=== PATIENT | female | born 1935 | race African-American/Black ===

== ENCOUNTER 2021-06-15 17:29 | Inpatient (IN) | payer OTHER ==
[~2021-06-15] VITALS: Ht 167.6 cm; Wt 70.3 kg
[~2021-06-15 17:29] MED LIST: ETOMIDATE 2MG/ML 10ML VIAL IV ONE; SUCCINYLCHOLINE CHLORIDE 200MG/10ML IV ONE
[2021-06-15] MEDS ORDERED: SUCCINYLCHOLINE CHLORIDE 200MG/10ML IV ONE (17:45)
[2021-06-15] MEDS ORDERED: FENTANYL CITRATE 2,500 MCG in SODIUM CHLORIDE 0.9% 200 ML IV PRN (17:45)
[2021-06-15] MEDS ORDERED: ETOMIDATE 2MG/ML 10ML VIAL IV ONE (17:45)
[2021-06-15] MEDS ORDERED: MIDAZOLAM 100MG/100ML PREMIX IV PRN (17:45)
[2021-06-15] MEDS ORDERED: LEVETIRACETAM 500MG PREMIX 100 ML IV ONE (17:45)
[2021-06-15] MEDS ORDERED: SUCCINYLCHOLINE CHLORIDE 200MG/10ML IV NR (18:00)
[2021-06-15] MEDS ORDERED: ETOMIDATE 2MG/ML 10ML VIAL IV NR (18:00)
[2021-06-15 18:14] LABS: BG BASE EXCESS -6.3 mmol/L (-2.0-2.0); BG CARBOXYHEMOGLOBIN 0.3 % (0.5-1.5); BG DEOXYHEMOGLOBIN 1.3 % (0.0-5.0); BG HCO3 ACT 18.4 mmol/L (22.0-26.0); BG METHEMOGLOBIN 0.1 % (0.0-1.5); BG OXYGEN SATURATION 98.7 % (92.0-98.5); BG OXYHEMOGLOBIN 98.3 % (94.0-97.0); BG PCO2 33.7 mmHg (35.0-45.0); BG PH 7.355 (7.350-7.450); BG PO2 140.8 mmHg (75.0-100.0); BG SAMPLE SITE RIGHT BRACHIAL; BG TOTAL HEMOGLOBIN 11.7 g/dL (12.0-18.0); BG VENT MODE VENT - AC
[2021-06-15 18:15] LABS: HEMATOCRIT. 36.7 % (36.0-48.0); HEMOGLOBIN. 11.9 g/dL (12.0-16.0); MEAN CORPUSCULAR HEMOGLOBIN 32.6 pg (28.0-32.0); MEAN PLATELET VOLUME 7.8 fl (7.4-10.4); PLATELET 155 x1000/uL (130-400); RED BLOOD CELL COUNT 3.63 mill/uL (4.2-5.4); RED CELL DISTRIBUTION WIDTH 21.9 % (11.6-14.6)
[2021-06-15] MEDS ORDERED: IOHEXOL-350 100 ML BOTTLE ONE (18:16)
[2021-06-15 18:21] LABS: CHLORIDE 109 mEq/L (98-107)
[2021-06-15 18:24] LABS: ETHANOL BLOOD < 10 mg/dL
[2021-06-15] MEDS ORDERED: DOXYCYCLINE 100MG in DEXTROSE 5% WATER 100ML IV NR (19:00)
[2021-06-15] MEDS ORDERED: CEFTRIAXONE 2 G PREMIX 50 ML IV ONE (19:00)
[2021-06-15] MEDS ORDERED: DOXYCYCLINE HYCLATE 100 MG/VIAL IV ONE (19:00)
[2021-06-15 19:22] LABS: CLARITY URINE CLEAR (CLEAR); COLOR URINE YELLOW (YELLOW); KETONES URINE NEGATIVE (NEGATIVE); LEUKOCYTE ESTERASE URINE NEGATIVE (NEGATIVE); NITRITE URINE NEGATIVE (NEGATIVE); OCCULT BLOOD URINE 2+ (NEGATIVE); PH URINE 6.5 (4.5-8.0); PROTEIN URINE 2+ (NEGATIVE); SPECIFIC GRAVITY URINE 1.022 (1.005-1.030); UROBILINOGEN URINE 0.2 E.U./dL (0.2-1.0)
[2021-06-15 19:46] LABS: *BARBITURATES SCREEN URINE NEGATIVE (NEGATIVE); CANNABINOID URINE SCREEN NEGATIVE (NEGATIVE)
[2021-06-15 19:47] LABS: *AMPHETAMINES SCREEN URINE NEGATIVE (NEGATIVE); *BENZODIAZEPINES SCREEN URINE PRESUMTIVE POSITIVE (NEGATIVE); *COCAINE SCREEN URINE NEGATIVE (NEGATIVE); METHADONE URINE SCREEN NEGATIVE (NEGATIVE); OPIATES URINE SCREEN NEGATIVE (NEGATIVE); PHENCYCLIDINE URINE SCREEN NEGATIVE (NEGATIVE)
[2021-06-15 22:02] LABS: NUCLEATED RED BLOOD CELLS 2 /100 WBC; PLATELET ESTIMATE NORMAL
[2021-06-15 23:00] VITALS: BP_SYST 171; BP_SYST 176; BP_DIAS 83; BP_DIAS 86
[2021-06-15 23:15] VITALS: BP 176/86
[2021-06-15 23:30] VITALS: BP 135/86
[2021-06-15 23:45] VITALS: BP 78/48
[2021-06-15] MEDS ORDERED: PROPOFOL 10MG/ML 100ML 100 ML IV PRN (23:45)
[2021-06-15] MEDS ORDERED: FENTANYL CITRATE/PF 2,500 MCG in SODIUM CHLORIDE 0.9% 200 ML IV PRN (23:45)
[2021-06-15] MEDS ORDERED: MIDAZOLAM 100MG/100ML PMX 100 ML IV PRN (23:45)
[2021-06-15] MEDS ORDERED: AMLODIPINE 10MG TABLET PO SCH (23:59)
[2021-06-15] MEDS: AMLODIPINE 10MG TABLET NG SCH (23:59)
[2021-06-15] MEDS: LOSARTAN POTASSIUM 50 MG TABLET NG SCH (23:59)
[2021-06-15] MEDS ORDERED: LOSARTAN POTASSIUM 50 MG TABLET PO SCH (23:59)
[2021-06-16] VITALS (66 sets, daily range): BP systolic 73–198; BP diastolic 41–103
[2021-06-16] MEDS ORDERED: NOREPINEPHRINE 8MG/250ML PMX 250 ML IV PRN (00:15)
[2021-06-16] MEDS ORDERED: DEXTROSE 50% WATER 50ML SYRINGE IV PRN (00:30)
[2021-06-16] MEDS ORDERED: ONDANSETRON HCL 4MG/2ML INJ IV PRN (00:30)
[2021-06-16] MEDS ORDERED: ACETAMINOPHEN 325MG TABLET PO PRN (00:30)
[2021-06-16] MEDS ORDERED: LEVETIRACETAM 500 MG in SODIUM CHLORIDE 0.9% 100 ML IV SCH (00:30)
[2021-06-16] MEDS ORDERED: NOREPINEPHRINE 8 MG in DEXTROSE 5% WATER 250 ML IV PRN (00:30)
[2021-06-16] MEDS: SODIUM CHLORIDE 0.9% 1,000 ML IV SCH ×3 (00:53→20:44)
[2021-06-16] MEDS ORDERED: RIVA20TA MT (01:51)
[2021-06-16] MEDS ORDERED: LOSA50TA3 MT (01:51)
[2021-06-16] MEDS ORDERED: ATOR10TA PO (01:54)
[2021-06-16] MEDS ORDERED: AMLO10TA4 MT (01:54)
[2021-06-16] MEDS ORDERED: METF-414 MT (01:54)
[2021-06-16] MEDS ORDERED: COM10 MT (01:54)
[2021-06-16] MEDS ORDERED: D3 (02:08)
[2021-06-16] MEDS ORDERED: FERR160T11 MT (02:08)
[2021-06-16] MEDS: MIDAZOLAM HCL 100 MG in SODIUM CHLORIDE 0.9% 100 ML IV PRN (02:40)
[2021-06-16] MEDS ORDERED: VANCOMYCIN 1 G PREMIX 200 ML IV NR (03:00)
[2021-06-16] MEDS ORDERED: *PATIENT'S OWN MEDICATION STORAGE XX SCH (04:15)
[2021-06-16] MEDS: LEVETIRACETAM 500MG PREMIX 100 ML IV SCH ×2 (05:35→20:43)
[2021-06-16] MEDS: PIPERACILLIN/TAZOBACTAM 3.375 G in DEXTROSE 5% WATER 50 ML IV SCH ×2 (05:35→14:33)
[2021-06-16] MEDS: INSULIN LISPRO 100 UNITS/ML SUBCUT SCH ×3 (05:43→17:56)
[2021-06-16] MEDS: BLOOD SUGAR DIAGNOSTIC STRIP TEST SCH ×3 (05:43→17:55)
[2021-06-16] MEDS: PANTOPRAZOLE SODIUM 40 MG/VIAL IV SCH (08:56)
[2021-06-16] MEDS: ASPIRIN 81MG TABLET PO SCH (08:56)
[2021-06-16] MEDS: AMLODIPINE 10MG TABLET NG SCH (08:57)
[2021-06-16] MEDS: LOSARTAN POTASSIUM 50 MG TABLET NG SCH ×2 (08:57→18:02)
[2021-06-16 09:32] LABS: BG BASE EXCESS -0.8 mmol/L (-2.0-2.0); BG CARBOXYHEMOGLOBIN 0.3 % (0.5-1.5); BG DEOXYHEMOGLOBIN 0.2 % (0.0-5.0); BG FRACTION INSPIRED OXYGEN 100; BG HCO3 ACT 19.6 mmol/L (22.0-26.0); BG METHEMOGLOBIN 0.3 % (0.0-1.5); BG OXYGEN SATURATION 99.8 % (92.0-98.5); BG OXYHEMOGLOBIN 99.2 % (94.0-97.0); BG PCO2 21.5 mmHg (35.0-45.0); BG PH 7.577 (7.350-7.450); BG PO2 432.1 mmHg (75.0-100.0); BG TOTAL HEMOGLOBIN 11.3 g/dL (12.0-18.0); BG VENT MODE VENT - AC
[2021-06-16] MEDS ORDERED: IPRATROPIUM/ALBUTEROL 0.5-3(2.5)MG/3ML NEB HHN PRN (11:30)
[2021-06-16] MEDS: IPRATROPIUM/ALBUTEROL 0.5-3(2.5)MG/3ML NEB HHN SCH ×2 (11:48→21:21)
[2021-06-16] MEDS: ENOXAPARIN 30MG/0.3ML SYR SUBCUT SCH (12:14)
[2021-06-16] MEDS: CLONIDINE 0.1MG TABLET NG PRN (16:30)
[2021-06-16] MEDS ORDERED: DIPHENHYDRAMINE 50MG/ML VIAL IM PRN (18:15)
[2021-06-16] MEDS: METHYLPREDNISOLONE SOD SUCC 40 MG/ML VIAL IV SCH (18:52)
[2021-06-16] MEDS ORDERED: DIPHENHYDRAMINE 50MG CAPSULE PO PRN (20:00)
[2021-06-16] MEDS: ATORVASTATIN CALCIUM 10MG TABLET NG SCH (20:43)
[2021-06-16] MEDS ORDERED: FAMOTIDINE 20MG/2ML VIAL IV SCH (21:00)
[2021-06-17] VITALS (74 sets, daily range): BP systolic 82–199; BP diastolic 25–105
[2021-06-17] MEDS ORDERED: DOPAMINE 400MG/250ML PREMIX 250 ML IV PRN
[2021-06-17] MEDS: PIPERACILLIN/TAZOBACTAM 3.375 G in DEXTROSE 5% WATER 50 ML IV SCH ×4 (00:01→22:06)
[2021-06-17] MEDS ORDERED: DOPAMINE 400MG/250ML PREMIX 250 ML IV ONE (00:05)
[2021-06-17 00:33] LABS: CHLORIDE 111 mEq/L (98-107)
[2021-06-17] MEDS: BLOOD SUGAR DIAGNOSTIC STRIP TEST SCH ×4 (00:38→18:00)
[2021-06-17] MEDS: INSULIN LISPRO 100 UNITS/ML SUBCUT SCH ×4 (00:39→18:29)
[2021-06-17] MEDS: MIDAZOLAM HCL 100 MG in SODIUM CHLORIDE 0.9% 100 ML IV PRN (03:45)
[2021-06-17] MEDS ORDERED: POTASSIUM CHLORIDE INJ 40 MEQ in DEXT 5% WATER 250 ML IV ONE (03:45)
[2021-06-17] MEDS: METHYLPREDNISOLONE SOD SUCC 40 MG/ML VIAL IV SCH ×3 (04:20→18:30)
[2021-06-17] MEDS: IPRATROPIUM/ALBUTEROL 0.5-3(2.5)MG/3ML NEB HHN SCH ×4 (04:57→20:25)
[2021-06-17] MEDS ORDERED: KCL 20MEQ/100ML PREMIX 100 ML IV NR ×2 (05:00→07:00)
[2021-06-17 05:44] LABS: BASOPHILS % 0.2 % (0.0-2.0); HEMATOCRIT. 35.1 % (36.0-48.0); HEMOGLOBIN. 11.3 g/dL (12.0-16.0); LYMPHOCYTES % 13.1 % (20.0-50.0); MEAN CORPUSCULAR HEMOGLOBIN 32.2 pg (28.0-32.0); MEAN CORPUSCULAR VOLUME 99.8 fL (81.0-99.0); MEAN PLATELET VOLUME 7.9 fl (7.4-10.4); MONOCYTES % 4.1 % (2.0-8.0); NEUTROPHILS % 82.6 % (40.0-76.0); PLATELET 143 x1000/uL (130-400); RED BLOOD CELL COUNT 3.51 mill/uL (4.2-5.4); RED CELL DISTRIBUTION WIDTH 21.9 % (11.6-14.6)
[2021-06-17 05:51] LABS: CHLORIDE 110 mEq/L (98-107)
[2021-06-17] MEDS: SODIUM CHLORIDE 0.9% 1,000 ML IV SCH ×2 (06:01→16:27)
[2021-06-17] MEDS ORDERED: VANCOMYCIN 1 G PREMIX 200 ML IV SCH (08:00)
[2021-06-17] MEDS: LOSARTAN POTASSIUM 50 MG TABLET NG SCH ×2 (09:00→16:27)
[2021-06-17] MEDS: AMLODIPINE 10MG TABLET NG SCH ×2 (09:00→16:28)
[2021-06-17] MEDS: LEVETIRACETAM 500MG PREMIX 100 ML IV SCH ×2 (09:10→20:59)
[2021-06-17] MEDS: PANTOPRAZOLE SODIUM 40 MG/VIAL IV SCH (09:11)
[2021-06-17] MEDS: ASPIRIN 81MG TABLET PO SCH (09:11)
[2021-06-17 09:56] LABS: BG BASE EXCESS -7.9 mmol/L (-2.0-2.0); BG CARBOXYHEMOGLOBIN 0.2 % (0.5-1.5); BG DEOXYHEMOGLOBIN 2.1 % (0.0-5.0); BG FRACTION INSPIRED OXYGEN 30; BG HCO3 ACT 16.9 mmol/L (22.0-26.0); BG METHEMOGLOBIN 0.7 % (0.0-1.5); BG OXYGEN SATURATION 97.9 % (92.0-98.5); BG PCO2 32.3 mmHg (35.0-45.0); BG PH 7.337 (7.350-7.450); BG PO2 129.9 mmHg (75.0-100.0); BG SAMPLE SITE RIGHT RADIAL; BG TOTAL HEMOGLOBIN 12.1 g/dL (12.0-18.0); BG VENT MODE VENT - AC
[2021-06-17] MEDS: ENOXAPARIN 30MG/0.3ML SYR SUBCUT SCH (12:22)
[2021-06-17] MEDS: ATORVASTATIN CALCIUM 10MG TABLET NG SCH (20:59)
[2021-06-18] VITALS (49 sets, daily range): BP systolic 115–179; BP diastolic 51–122
[2021-06-18] MEDS: IPRATROPIUM/ALBUTEROL 0.5-3(2.5)MG/3ML NEB HHN SCH ×4 (00:18→20:40)
[2021-06-18] MEDS: BLOOD SUGAR DIAGNOSTIC STRIP TEST SCH ×4 (00:29→18:15)
[2021-06-18] MEDS: INSULIN LISPRO 100 UNITS/ML SUBCUT SCH ×4 (00:31→18:19)
[2021-06-18] MEDS: METHYLPREDNISOLONE SOD SUCC 40 MG/ML VIAL IV SCH ×3 (02:18→18:19)
[2021-06-18] MEDS: SODIUM CHLORIDE 0.9% 1,000 ML IV SCH ×3 (02:23→22:43)
[2021-06-18] MEDS: PIPERACILLIN/TAZOBACTAM 3.375 G in DEXTROSE 5% WATER 50 ML IV SCH ×3 (05:40→22:43)
[2021-06-18 06:19] LABS: HEMATOCRIT. 34.3 % (36.0-48.0); HEMOGLOBIN. 11.3 g/dL (12.0-16.0); MEAN CORPUSCULAR HEMOGLOBIN 33.8 pg (28.0-32.0); MEAN CORPUSCULAR VOLUME 102.5 fL (81.0-99.0); MEAN PLATELET VOLUME 7.9 fl (7.4-10.4); PLATELET 124 x1000/uL (130-400); RED BLOOD CELL COUNT 3.35 mill/uL (4.2-5.4); RED CELL DISTRIBUTION WIDTH 21.8 % (11.6-14.6)
[2021-06-18 06:29] LABS: CHLORIDE 114 mEq/L (98-107)
[2021-06-18] MEDS: LOSARTAN POTASSIUM 50 MG TABLET NG SCH ×2 (08:40→18:19)
[2021-06-18] MEDS: PANTOPRAZOLE SODIUM 40 MG/VIAL IV SCH (08:40)
[2021-06-18] MEDS: ASPIRIN 81MG TABLET PO SCH (08:41)
[2021-06-18] MEDS: AMLODIPINE 10MG TABLET NG SCH (08:41)
[2021-06-18] MEDS: LEVETIRACETAM 500MG PREMIX 100 ML IV SCH ×2 (08:42→20:23)
[2021-06-18 09:03] LABS: BG BASE EXCESS -6.9 mmol/L (-2.0-2.0); BG CARBOXYHEMOGLOBIN 0.1 % (0.5-1.5); BG FRACTION INSPIRED OXYGEN 30; BG HCO3 ACT 17.8 mmol/L (22.0-26.0); BG METHEMOGLOBIN 0.1 % (0.0-1.5); BG OXYGEN SATURATION 98.4 % (92.0-98.5); BG OXYHEMOGLOBIN 98.2 % (94.0-97.0); BG PO2 140.8 mmHg (75.0-100.0); BG SAMPLE SITE RIGHT RADIAL; BG TOTAL HEMOGLOBIN 10.8 g/dL (12.0-18.0); BG VENT MODE VENT - AC
[2021-06-18 09:04] LABS: BG DEOXYHEMOGLOBIN 1.6 % (0.0-5.0)
[2021-06-18 09:16] LABS: PLATELET ESTIMATE SLIGHTLY DECREASED
[2021-06-18] MEDS ORDERED: POTASSIUM CHLORIDE 20MEQ/PACKET PO NR (10:00)
[2021-06-18] MEDS: ENOXAPARIN 30MG/0.3ML SYR SUBCUT SCH (13:51)
[2021-06-18] MEDS: CLONIDINE 0.1MG TABLET NG PRN (15:35)
[2021-06-18 16:05] LABS: BG BASE EXCESS -4.9 mmol/L (-2.0-2.0); BG CARBOXYHEMOGLOBIN 0.3 % (0.5-1.5); BG DEOXYHEMOGLOBIN 1.6 % (0.0-5.0); BG FRACTION INSPIRED OXYGEN 30; BG HCO3 ACT 19.1 mmol/L (22.0-26.0); BG METHEMOGLOBIN 0.1 % (0.0-1.5); BG OXYGEN SATURATION 98.4 % (92.0-98.5); BG PCO2 32.2 mmHg (35.0-45.0); BG PH 7.392 (7.350-7.450); BG PO2 126.8 mmHg (75.0-100.0); BG SAMPLE SITE LEFT RADIAL; BG TOTAL HEMOGLOBIN 11.7 g/dL (12.0-18.0); BG VENT MODE VENT - CPAP
[2021-06-18] MEDS: ATORVASTATIN CALCIUM 10MG TABLET NG SCH (20:23)
[2021-06-18] MEDS: INSULIN GLARGINE UD 100 UNITS/ML SYR SUBCUT SCH (22:44)
[2021-06-19] VITALS (50 sets, daily range): BP systolic 114–165; BP diastolic 51–107
[2021-06-19] MEDS: INSULIN LISPRO 100 UNITS/ML SUBCUT SCH ×5 (00:08→23:26)
[2021-06-19] MEDS: BLOOD SUGAR DIAGNOSTIC STRIP TEST SCH ×5 (00:09→23:53)
[2021-06-19] MEDS: METHYLPREDNISOLONE SOD SUCC 40 MG/ML VIAL IV SCH ×3 (02:09→17:18)
[2021-06-19] MEDS: IPRATROPIUM/ALBUTEROL 0.5-3(2.5)MG/3ML NEB HHN SCH ×4 (02:26→20:18)
[2021-06-19 05:39] LABS: HEMATOCRIT. 34.5 % (36.0-48.0); HEMOGLOBIN. 11.5 g/dL (12.0-16.0); MEAN CORPUSCULAR HEMOGLOBIN 33.1 pg (28.0-32.0); MEAN CORPUSCULAR VOLUME 99.7 fL (81.0-99.0); PLATELET 126 x1000/uL (130-400); RED BLOOD CELL COUNT 3.46 mill/uL (4.2-5.4)
[2021-06-19 05:48] LABS: CHLORIDE 115 mEq/L (98-107)
[2021-06-19] MEDS: PIPERACILLIN/TAZOBACTAM 3.375 G in DEXTROSE 5% WATER 50 ML IV SCH ×3 (06:20→21:53)
[2021-06-19] MEDS: LEVETIRACETAM 500MG PREMIX 100 ML IV SCH ×2 (08:22→20:10)
[2021-06-19] MEDS: SODIUM CHLORIDE 0.9% 1,000 ML IV SCH ×2 (08:23→17:18)
[2021-06-19] MEDS: PANTOPRAZOLE SODIUM 40 MG/VIAL IV SCH (08:23)
[2021-06-19] MEDS: LOSARTAN POTASSIUM 50 MG TABLET NG SCH ×2 (08:24→16:52)
[2021-06-19] MEDS: AMLODIPINE 10MG TABLET NG SCH (08:24)
[2021-06-19] MEDS: ASPIRIN 81MG TABLET PO SCH (08:24)
[2021-06-19 11:09] LABS: PLATELET ESTIMATE SLIGHTLY DECREASED
[2021-06-19] MEDS: ENOXAPARIN 30MG/0.3ML SYR SUBCUT SCH (12:10)
[2021-06-19 14:36] LABS: PHOSPHORUS 1.6 mg/dL (2.5-4.9)
[2021-06-19] MEDS ORDERED: POTASSIUM PHOS,M-BASIC-D-BASIC 20 MMOL in DEXT 5% WATER 243.3333 ML IV NR (17:00)
[2021-06-19] MEDS: ATORVASTATIN CALCIUM 10MG TABLET NG SCH (20:10)
[2021-06-19] MEDS: INSULIN GLARGINE UD 100 UNITS/ML SYR SUBCUT SCH (21:54)
[2021-06-20] VITALS (51 sets, daily range): BP systolic 121–170; BP diastolic 34–105
[2021-06-20] MEDS: IPRATROPIUM/ALBUTEROL 0.5-3(2.5)MG/3ML NEB HHN SCH ×4 (02:08→20:51)
[2021-06-20] MEDS: METHYLPREDNISOLONE SOD SUCC 40 MG/ML VIAL IV SCH ×3 (02:53→17:31)
[2021-06-20] MEDS: SODIUM CHLORIDE 0.9% 1,000 ML IV SCH ×2 (05:11→15:00)
[2021-06-20] MEDS: PIPERACILLIN/TAZOBACTAM 3.375 G in DEXTROSE 5% WATER 50 ML IV SCH ×2 (05:11→14:28)
[2021-06-20] MEDS: INSULIN LISPRO 100 UNITS/ML SUBCUT SCH ×3 (05:12→17:32)
[2021-06-20] MEDS: BLOOD SUGAR DIAGNOSTIC STRIP TEST SCH ×4 (05:13→23:44)
[2021-06-20 06:09] LABS: HEMATOCRIT. 33.6 % (36.0-48.0); HEMOGLOBIN. 11.1 g/dL (12.0-16.0); MEAN CORPUSCULAR HEMOGLOBIN 32.4 pg (28.0-32.0); MEAN CORPUSCULAR VOLUME 97.6 fL (81.0-99.0); MEAN PLATELET VOLUME 7.9 fl (7.4-10.4); PLATELET 126 x1000/uL (130-400); RED BLOOD CELL COUNT 3.44 mill/uL (4.2-5.4); RED CELL DISTRIBUTION WIDTH 22.2 % (11.6-14.6)
[2021-06-20 06:11] LABS: CHLORIDE 113 mEq/L (98-107)
[2021-06-20 07:48] LABS: PLATELET ESTIMATE SLIGHTLY DECREASED
[2021-06-20] MEDS: LOSARTAN POTASSIUM 50 MG TABLET NG SCH ×2 (08:58→17:31)
[2021-06-20] MEDS: ASPIRIN 81MG TABLET PO SCH (08:58)
[2021-06-20] MEDS: LEVETIRACETAM 500MG PREMIX 100 ML IV SCH ×2 (08:58→21:54)
[2021-06-20] MEDS: PANTOPRAZOLE SODIUM 40 MG/VIAL IV SCH (08:59)
[2021-06-20] MEDS: AMLODIPINE 10MG TABLET NG SCH (08:59)
[2021-06-20] MEDS: HYDRALAZINE 20MG/ML VIAL IV PRN (11:07)
[2021-06-20] MEDS: ENOXAPARIN 30MG/0.3ML SYR SUBCUT SCH (11:58)
[2021-06-20] MEDS: ATORVASTATIN CALCIUM 10MG TABLET NG SCH (21:54)
[2021-06-20] MEDS: INSULIN GLARGINE UD 100 UNITS/ML SYR SUBCUT SCH (21:57)
[2021-06-21] VITALS (26 sets, daily range): BP systolic 138–169; BP diastolic 62–98
[2021-06-21] MEDS: INSULIN LISPRO 100 UNITS/ML SUBCUT SCH ×4 (00:03→17:00)
[2021-06-21] MEDS: IPRATROPIUM/ALBUTEROL 0.5-3(2.5)MG/3ML NEB HHN SCH (01:45)
[2021-06-21] MEDS: METHYLPREDNISOLONE SOD SUCC 40 MG/ML VIAL IV SCH ×3 (02:26→18:43)
[2021-06-21] MEDS: HYDRALAZINE 20MG/ML VIAL IV PRN (05:56)
[2021-06-21 06:19] LABS: BASOPHILS % 0.1 % (0.0-2.0); EOSINOPHILS % 0.1 % (0.0-5.0); HEMATOCRIT. 34.9 % (36.0-48.0); HEMOGLOBIN. 11.4 g/dL (12.0-16.0); LYMPHOCYTES % 11.3 % (20.0-50.0); MEAN PLATELET VOLUME 7.9 fl (7.4-10.4); MONOCYTES % 12.5 % (2.0-8.0); PLATELET 125 x1000/uL (130-400); RED BLOOD CELL COUNT 3.56 mill/uL (4.2-5.4); RED CELL DISTRIBUTION WIDTH 21.8 % (11.6-14.6)
[2021-06-21 06:24] LABS: CHLORIDE 111 mEq/L (98-107)
[2021-06-21] MEDS: BLOOD SUGAR DIAGNOSTIC STRIP TEST SCH ×3 (06:41→17:00)
[2021-06-21] MEDS: AMLODIPINE 10MG TABLET NG SCH (09:40)
[2021-06-21] MEDS: PANTOPRAZOLE SODIUM 40 MG/VIAL IV SCH (09:40)
[2021-06-21] MEDS: LEVETIRACETAM 500MG PREMIX 100 ML IV SCH (09:40)
[2021-06-21] MEDS: ASPIRIN 81MG TABLET PO SCH (09:40)
[2021-06-21] MEDS: LOSARTAN POTASSIUM 50 MG TABLET NG SCH ×2 (09:40→18:44)
[2021-06-21] MEDS: ENOXAPARIN 30MG/0.3ML SYR SUBCUT SCH (13:34)
[2021-06-21] MEDS: ATORVASTATIN CALCIUM 10MG TABLET NG SCH (21:00)
[2021-06-21] MEDS: LEVETIRACETAM 500MG TABLET PO SCH (21:00)
[2021-06-21] MEDS: INSULIN GLARGINE UD 100 UNITS/ML SYR SUBCUT SCH (22:00)
[2021-06-22] VITALS (13 sets, daily range): BP systolic 126–152; BP diastolic 61–83
[2021-06-22] MEDS: INSULIN LISPRO 100 UNITS/ML SUBCUT SCH ×5 (00:39→23:35)
[2021-06-22] MEDS: METHYLPREDNISOLONE SOD SUCC 40 MG/ML VIAL IV SCH ×3 (02:46→17:57)
[2021-06-22] MEDS: BLOOD SUGAR DIAGNOSTIC STRIP TEST SCH ×5 (06:30→23:34)
[2021-06-22] MEDS: ASPIRIN 81MG TABLET PO SCH (09:00)
[2021-06-22] MEDS: LEVETIRACETAM 500MG TABLET PO SCH ×2 (09:00→22:26)
[2021-06-22] MEDS: LOSARTAN POTASSIUM 50 MG TABLET NG SCH ×2 (09:00→17:57)
[2021-06-22] MEDS: AMLODIPINE 10MG TABLET NG SCH (09:00)
[2021-06-22] MEDS: PANTOPRAZOLE SODIUM 40 MG/VIAL IV SCH (09:01)
[2021-06-22 09:30] LABS: CHLORIDE 109 mEq/L (98-107)
[2021-06-22 09:31] LABS: BASOPHILS % 0.5 % (0.0-2.0); HEMATOCRIT. 36.9 % (36.0-48.0); HEMOGLOBIN. 12.3 g/dL (12.0-16.0); LYMPHOCYTES % 11.8 % (20.0-50.0); MEAN CORPUSCULAR HEMOGLOBIN 32.8 pg (28.0-32.0); MEAN CORPUSCULAR VOLUME 98.7 fL (81.0-99.0); MEAN PLATELET VOLUME 8.1 fl (7.4-10.4); MONOCYTES % 7.3 % (2.0-8.0); NEUTROPHILS % 80.4 % (40.0-76.0); PLATELET 126 x1000/uL (130-400); RED BLOOD CELL COUNT 3.74 mill/uL (4.2-5.4); RED CELL DISTRIBUTION WIDTH 22.2 % (11.6-14.6)
[2021-06-22 10:03] LABS: PHOSPHORUS 2.8 mg/dL (2.5-4.9)
[2021-06-22] MEDS: ENOXAPARIN 30MG/0.3ML SYR SUBCUT SCH (12:33)
[2021-06-22] MEDS ORDERED: CLONIDINE 0.1MG TABLET PO SCH (14:00)
[2021-06-22] MEDS: ATORVASTATIN CALCIUM 10MG TABLET NG SCH (22:26)
[2021-06-22] MEDS: INSULIN GLARGINE UD 100 UNITS/ML SYR SUBCUT SCH (22:28)
[2021-06-23] VITALS (12 sets, daily range): BP systolic 123–152; BP diastolic 61–98
[2021-06-23] MEDS: METHYLPREDNISOLONE SOD SUCC 40 MG/ML VIAL IV SCH ×3 (02:03→17:25)
[2021-06-23] MEDS: BLOOD SUGAR DIAGNOSTIC STRIP TEST SCH ×3 (05:50→16:56)
[2021-06-23] MEDS: INSULIN LISPRO 100 UNITS/ML SUBCUT SCH ×3 (05:51→17:25)
[2021-06-23] MEDS: PANTOPRAZOLE SODIUM 40 MG/VIAL IV SCH (10:46)
[2021-06-23] MEDS: ASPIRIN 81MG TABLET PO SCH (10:47)
[2021-06-23] MEDS: LOSARTAN POTASSIUM 50 MG TABLET NG SCH ×2 (10:47→17:25)
[2021-06-23] MEDS: AMLODIPINE 10MG TABLET NG SCH (10:47)
[2021-06-23] MEDS: LEVETIRACETAM 500MG TABLET PO SCH ×2 (10:47→21:30)
[2021-06-23] MEDS: ENOXAPARIN 30MG/0.3ML SYR SUBCUT SCH (12:44)
[2021-06-23] MEDS: ATORVASTATIN CALCIUM 10MG TABLET NG SCH (21:30)
[2021-06-23] MEDS: INSULIN GLARGINE UD 100 UNITS/ML SYR SUBCUT SCH (21:31)
[2021-06-24] VITALS (11 sets, daily range): BP systolic 117–173; BP diastolic 61–80
[2021-06-24] MEDS: BLOOD SUGAR DIAGNOSTIC STRIP TEST SCH ×4 (00:28→17:13)
[2021-06-24] MEDS: INSULIN LISPRO 100 UNITS/ML SUBCUT SCH ×4 (00:29→17:20)
[2021-06-24] MEDS: METHYLPREDNISOLONE SOD SUCC 40 MG/ML VIAL IV SCH ×3 (02:55→17:19)
[2021-06-24] MEDS: PANTOPRAZOLE SODIUM 40 MG/VIAL IV SCH (08:40)
[2021-06-24] MEDS: LOSARTAN POTASSIUM 50 MG TABLET NG SCH ×2 (08:40→17:19)
[2021-06-24] MEDS: ASPIRIN 81MG TABLET PO SCH (08:40)
[2021-06-24] MEDS: AMLODIPINE 10MG TABLET NG SCH (08:41)
[2021-06-24] MEDS: LEVETIRACETAM 500MG TABLET PO SCH ×2 (08:41→21:58)
[2021-06-24] MEDS: ENOXAPARIN 30MG/0.3ML SYR SUBCUT SCH (13:08)
[2021-06-24] MEDS: ATORVASTATIN CALCIUM 10MG TABLET NG SCH (21:58)
[2021-06-24] MEDS: INSULIN GLARGINE UD 100 UNITS/ML SYR SUBCUT SCH (21:59)
[2021-06-25] VITALS: BP 133/69
[2021-06-25] MEDS: BLOOD SUGAR DIAGNOSTIC STRIP TEST SCH ×4 (00:56→17:51)
[2021-06-25] MEDS: INSULIN LISPRO 100 UNITS/ML SUBCUT SCH ×4 (00:57→17:52)
[2021-06-25] MEDS: METHYLPREDNISOLONE SOD SUCC 40 MG/ML VIAL IV SCH ×3 (02:03→17:54)
[2021-06-25 04:00] VITALS: BP 135/72
[2021-06-25 08:00] VITALS: BP 144/70
[2021-06-25] MEDS: ASPIRIN 81MG TABLET PO SCH (09:27)
[2021-06-25] MEDS: PANTOPRAZOLE SODIUM 40 MG/VIAL IV SCH (09:27)
[2021-06-25] MEDS: LEVETIRACETAM 500MG TABLET PO SCH ×2 (09:27→20:55)
[2021-06-25] MEDS: AMLODIPINE 10MG TABLET NG SCH (09:28)
[2021-06-25] MEDS: LOSARTAN POTASSIUM 50 MG TABLET NG SCH ×2 (09:28→17:19)
[2021-06-25] MEDS: ENOXAPARIN 30MG/0.3ML SYR SUBCUT SCH (11:48)
[2021-06-25 11:59] VITALS: BP 125/65
[2021-06-25 16:00] VITALS: BP 138/75
[2021-06-25] MEDS: THROAT LOZENGES-BENZOCAINE/MENTH/CETYLPYRD CL LOZENGES MM PRN (16:58)
[2021-06-25 20:00] VITALS: BP 132/66
[2021-06-25] MEDS: ATORVASTATIN CALCIUM 10MG TABLET NG SCH (20:55)
[2021-06-25] MEDS: INSULIN GLARGINE UD 100 UNITS/ML SYR SUBCUT SCH (22:01)
[2021-06-26] VITALS: BP 131/70
[2021-06-26] MEDS: INSULIN LISPRO 100 UNITS/ML SUBCUT SCH ×5 (00:38→23:08)
[2021-06-26] MEDS: BLOOD SUGAR DIAGNOSTIC STRIP TEST SCH ×5 (00:39→23:08)
[2021-06-26] MEDS: METHYLPREDNISOLONE SOD SUCC 40 MG/ML VIAL IV SCH ×3 (01:23→18:31)
[2021-06-26 04:00] VITALS: BP 155/80
[2021-06-26 08:00] VITALS: BP 145/61
[2021-06-26] MEDS: LOSARTAN POTASSIUM 50 MG TABLET NG SCH ×2 (09:38→18:31)
[2021-06-26] MEDS: LEVETIRACETAM 500MG TABLET PO SCH ×2 (09:38→20:18)
[2021-06-26] MEDS: PANTOPRAZOLE SODIUM 40 MG/VIAL IV SCH (09:38)
[2021-06-26] MEDS: ASPIRIN 81MG TABLET PO SCH (09:38)
[2021-06-26] MEDS: AMLODIPINE 10MG TABLET NG SCH (09:39)
[2021-06-26 10:00] VITALS: BP 131/75
[2021-06-26] MEDS: ENOXAPARIN 30MG/0.3ML SYR SUBCUT SCH (12:07)
[2021-06-26 16:00] VITALS: BP 123/58
[2021-06-26 20:00] VITALS: BP 138/77
[2021-06-26] MEDS: ATORVASTATIN CALCIUM 10MG TABLET NG SCH (20:18)
[2021-06-26] MEDS: THROAT LOZENGES-BENZOCAINE/MENTH/CETYLPYRD CL LOZENGES MM PRN (23:00)
[2021-06-26] MEDS: INSULIN GLARGINE UD 100 UNITS/ML SYR SUBCUT SCH (23:08)
[2021-06-27] VITALS: BP 143/72
[2021-06-27] MEDS: METHYLPREDNISOLONE SOD SUCC 40 MG/ML VIAL IV SCH (02:45)
[2021-06-27 04:00] VITALS: BP 136/74
[2021-06-27] MEDS: THROAT LOZENGES-BENZOCAINE/MENTH/CETYLPYRD CL LOZENGES MM PRN (05:29)
[2021-06-27] MEDS: BLOOD SUGAR DIAGNOSTIC STRIP TEST SCH ×2 (05:33→12:00)
[2021-06-27] MEDS: INSULIN LISPRO 100 UNITS/ML SUBCUT SCH ×2 (05:33→13:17)
[2021-06-27 08:00] VITALS: BP 122/58
[2021-06-27] MEDS: PANTOPRAZOLE SODIUM 40 MG/VIAL IV SCH (08:23)
[2021-06-27] MEDS: AMLODIPINE 10MG TABLET NG SCH (08:23)
[2021-06-27] MEDS: LOSARTAN POTASSIUM 50 MG TABLET NG SCH (08:24)
[2021-06-27] MEDS: ASPIRIN 81MG TABLET PO SCH (08:24)
[2021-06-27] MEDS: LEVETIRACETAM 500MG TABLET PO SCH (08:24)
[2021-06-27 12:00] VITALS: BP 111/61
[2021-06-27] MEDS: ENOXAPARIN 30MG/0.3ML SYR SUBCUT SCH (13:16)
[2021-06-27 13:52] VITALS: BP 135/71
== END 2021-06-27 16:30 | disposition home health service (06) | DRG 208 ==
LOC: ER 17:42 → EDBEDREQTM 21:41 → EDBEDREQ 21:41 → ENRESERV 21:56 → CVICU 23:09 → 5EST 06-21 10:10
PROVIDERS: ADMIT Internal Medicine; ATTEND Internal Medicine
PROC: 5A1945Z Respiratory Ventilation, 24-96 Consecutive Hours (ICD-10-PCS; principal; 2021-06-15)
PROC: 0BH17EZ Insertion of Endotracheal Airway into Trachea, Via Natural or Artificial Opening (ICD-10-PCS; 2021-06-15)
PROC: 05HY33Z Insertion of Infusion Device into Upper Vein, Percutaneous Approach (ICD-10-PCS; 2021-06-16)
PROC: B54MZZA Ultrasonography of Right Upper Extremity Veins, Guidance (ICD-10-PCS; 2021-06-16)
PROC: 4A10X4Z Monitoring of Central Nervous Electrical Activity, External Approach (ICD-10-PCS; 2021-06-25)
DX: J69.0 Pneumonitis due to inhalation of food and vomit (principal); J96.00 Acute respiratory failure, unspecified whether with hypoxia or hypercapnia; G93.41 Metabolic encephalopathy; E44.1 Mild protein-calorie malnutrition; E72.20 Disorder of urea cycle metabolism, unspecified; R47.01 Aphasia; G40.909 Epilepsy, unspecified, not intractable, without status epilepticus; E11.65 Type 2 diabetes mellitus with hyperglycemia; E87.8 Other disorders of electrolyte and fluid balance, not elsewhere classified; I10 Essential (primary) hypertension; E78.5 Hyperlipidemia, unspecified; D64.9 Anemia, unspecified; E78.00 Pure hypercholesterolemia, unspecified; R74.01 Elevation of levels of liver transaminase levels; Z20.822 Contact with and (suspected) exposure to COVID-19; E87.6 Hypokalemia; I44.7 Left bundle-branch block, unspecified; R29.810 Facial weakness; Z79.01 Long term (current) use of anticoagulants; Z86.711 Personal history of pulmonary embolism; Z79.84 Long term (current) use of oral hypoglycemic drugs; Z68.25 Body mass index [BMI] 25.0-25.9, adult; Z79.899 Other long term (current) drug therapy; Z78.1 Physical restraint status; R00.1 Bradycardia, unspecified
CPT/HCPCS: 36415; 36600; 70496; 70551; 71045; 76937; 80048; 80053; 80061; 80305; 80320; 81003; 82140; 82375; 82805; 82962; 83036; 83605; 83735; 83880; 84100; 84443; 84478; 84484; 85025; 87070; 87426; 87804; 92610; 93005; 93306; 95816; 97116; 97162; 97166; 99291; C1725; C9113; J0330; J0360; J0696; J1200; J1265; J1650; J1815; J1953; J2250; J2543; J2920; J3370; J3480; J3490; J7030; J7040; J7050; J7060; Q9967; G0480